=== PATIENT | male | born 1960 | race Caucasian/White ===

== ENCOUNTER → 2021-04-11 | Outpatient (CLI) | payer OTHER ==
[~2021-04-11] MED LIST: ALBU90I INH; ASPI81CH; ATOR20; CARV3.125; CLOP75; DIPH50 PO; Lisinopril2.5 MG; RANI150 PO
== END | disposition home or self-care (01) ==
LOC: LAB SHORT 12:14 → LAB 12:14
DX: C44.619 Basal cell carcinoma of skin of left upper limb, including shoulder (principal)
CPT/HCPCS: 88305

== ENCOUNTER 2022-01-14 06:51 | Day surgery (SDC) | payer OTHER ==
[~2022-01-14] VITALS: Ht 175.3 cm; Wt 81.1 kg
[~2022-01-14 06:51] MED LIST changes: -ASPI81CH; +ASPI81CH PO; -ATOR20; +ATOR20 PO; -CARV3.125; +CARV3.125 PO; +LISI5 PO; -Lisinopril2.5 MG; +MAGNESIUM OXID500 MG PO
[2022-01-14] MEDS ORDERED: GLUC500 (07:04)
[2022-01-14] MEDS ORDERED: ERGO400 (07:05)
[2022-01-14] MEDS ORDERED: COENZYME Q-1030 MG (07:05)
--- NOTE | 2022-01-14 07:06 | NUR ---
01/14/22 0706 Skylar Silvestre PT TOOK [facility] FOR PREP.
== END 2022-01-14 08:32 | disposition home or self-care (01) ==
LOC: ORSCSDS 06:51
PROVIDERS: Surgery
PROC: 0DBP8ZX Excision of Rectum, Via Natural or Artificial Opening Endoscopic, Diagnostic (ICD-10-PCS; principal; 2022-01-14 08:00)
PROC: 0DBN8ZX Excision of Sigmoid Colon, Via Natural or Artificial Opening Endoscopic, Diagnostic (ICD-10-PCS; principal; 2022-01-14 08:00)
DX: Z12.11 Encounter for screening for malignant neoplasm of colon (principal); Z86.010 Personal history of colon polyps; D12.0 Benign neoplasm of cecum; K62.1 Rectal polyp; I25.10 Atherosclerotic heart disease of native coronary artery without angina pectoris; E78.5 Hyperlipidemia, unspecified; I10 Essential (primary) hypertension; I25.2 Old myocardial infarction; Z79.82 Long term (current) use of aspirin; Z79.899 Other long term (current) drug therapy
CPT/HCPCS: 88305; J2704; J7120

== ENCOUNTER → 2023-04-15 | Outpatient (CLI) | payer OTHER ==
[~2023-04-15] MED LIST changes: +COENZYME Q-1030 MG; +ERGO400; +GLUC500
== END | disposition home or self-care (01) ==
LOC: LAB SHORT 12:24 → PLD 12:24
DX: L57.0 Actinic keratosis (principal)
CPT/HCPCS: 88305